=== PATIENT | male | born 1975 | race Two or more races ===

== ENCOUNTER → 2024-10-20 | Outpatient (CLI) | payer MEDICARE, MEDICAID, SELFPAY ==
--- NOTE | 2024-10-20 12:52 | XR_ITS ---
Examination: MRI brain without intravenous contrast. Date and time of exam: October 20, 2024 1309 hours Comparison April 13, 2015 INDICATIONS: Seizure activity beginning 5 months ago with memory loss Technique: Multiple axial and sagittal images of the brain obtained. Siemens high-resolution 1.5 Cherri short bore scanners utilized. Sagittal sections, T1-weighted, TR 500, TE 14, are performed. Axial sections proton-density and T2-weighted have been obtained. Inversion recovery axial images, TR 9, 260, TE 111, TI 2500. Diffusion weighted images, axial sections, TR 4800, TE 128, B value 1000 Axial sections, ADC map, TR 4800, TE 128 Findings: Enlargement of the sella turcica is not present. The optic chiasm and infundibular are not remarkable. Prepontine and interpeduncular cisterns are not enlarged. There is no localized enlargement of the medulla or annie. Fourth ventricle and cerebellar tonsils appear normal in position. No subacute area of hemorrhage density is seen. Mass in the cerebellopontine angle region is not evident. Globes symmetrical. Orbital musculature including medial lateral rectus muscles do not exhibit abnormality. Diffusion-weighted images demonstrate no focus of restricted diffusion. Increased white matter signal not seen Mass effect upon the ventricular system is not identified. Impression: Negative for acute hemorrhage mass effect or midline shift No acute infarct No MR findings diagnostic for demyelinating disease
== END | disposition home or self-care (01) ==
PROVIDERS: PCP Psychiatry & Neurology Neurology; Referring Provider Psychiatry & Neurology Neurology; Visit Provider Psychiatry & Neurology Neurology
DX: R41.3 Other amnesia (principal)
CPT/HCPCS: 70551

== ENCOUNTER 2024-12-24 20:03 | Emergency (ER) | payer MEDICARE, MEDICAID, SELFPAY ==
[2024-12-24] VITALS (9 sets, daily range): BP systolic 121–150; BP diastolic 69–98; PULSE 113–135; RESP 16–22; TEMP 37–38.6; O2SAT 91–100; BMI 24.4
--- NOTE | 2024-12-24 20:19 | EDNOTE_ITS ---
ED Seizures RME/HPI General Chief Complaint: Seizure Stated Complaint: SIEZURE Time Seen by Provider: 12/24/24 20:16 Arrival date/time: 12/24/24 20:03 RME / HPI RME / HPI Narrative: Dr. Krause?s Main ED Evaluation: 49yo male with a history of seizures QUYEN from home presents to the ED for a chief complaint of seizures. Family member at bedside states the patient had a total of 7 seizures today, which is unusual for him. Family member denies any cough, runny nose, fever, chills or any other associated symptoms. Family denies any recent sick contacts. No history of DM, HTN, or HLD. Full ROS is unobtainable due to the patient being postictal. Related Data Previous Rx's ?Medication ?Instructions ?Recorded Acetaminophen With Codeine 1 tab PO [id number] ##14 07/28 (Tylenol W-Codeine #3 Tablet) Allergies Allergy/AdvReac Type Severity Reaction Status Date / Time Bee Stings Allergy Severe Hives Uncoded 12/25/24 00:50 Review of Systems Review of Systems ROS Unobtainable: unobtainable due to medical condition (patient does not open his eyes or respond to commands) Past Medical History Past Medical History NEUROLOGIC: Positive Neurological Disorders (DEVELOPMENTALLY DELAYED) and Seiz ures CARDIAC: Negative Congestive Heart Failure RESPIRATORY: Negative Chronic Obstructive Pulmonary Disease (COPD) GENITOURINARY: Negative Renal Disease ENDOCRINE: Negative Diabetes Mellitus Type 1 or Diabetes Mellitus Type 2 Social History SMOKING STATUS: Never smoker ED Exam Narrative Physical exam: GENERAL APPEARANCE: Has muscle atrophy and muscle wasting, no acute distress. HEENT: NC, AT. MMM. EOMI, clear conjunctiva, oropharynx clear. NECK: Supple without lymphadenopathy. No stiffness or restricted ROM. HEART: Normal rate and regular rhythm, normal S1/S1, no m/r/g LUNGS: CTAB, spontaneous breathing. No crackles or wheezes are heard. ABDOMEN: Soft, nontender, nondistended with good bowel sounds heard. BACK: No midline C/T/L spine pain or deformity, No CVAT, no obvious deformity. EXTREMITIES: Without cyanosis, clubbing or edema. MUSCULOSKELETAL: FROM of all major joints, no chest tenderness NEUROLOGICAL: Postictal, does not respond to commands. Skin: Warm and dry without any rash. Course Course Course Narrative: CXR is ordered for determining the etiology of fever. 2024: Sepsis alert initiated. Orders made at this time are congruent with ED Adult Sepsis Order List. Re-evaluation is to be completed. 2142: NS IVF started. 7: Sepsis reassessment performed consisting of lab review, vitals, physical exam including auscultation of heart, lungs, and visual evaluation of capillary refills, mucosal membranes and extremities. 0101: As the patient was about to be discharged, patient became combative and uncooperative, and was placed back into room 4. 0338: Patient became agitated and is trying to fling himself off the bed. Valium 5mg IV ordered. Patient is stable to be discharged home whenever he wakes up. 0600: Care signed out to Dr. Levin (emergency physician). Past medical, surgical, social and family history reviewed. Vitals and home medications reviewed. Results and treatment plan discussed. They will assume the care of the patient at this time and will follow the patient, pending re-evaluation and final disposition Quality Measures Possible source: other (viral syndrome) Blood cultures ordered: yes Antibiotic ordered: Yes Pertinent labs: 12/24/24 12/24/24 20:08 23:19 Lactic Acid 6.8 H* mMol/L 1.8 mMol/L (0.4-2.0) (0.4-2.0) Procalcitonin 0.05 ng/ml (0.0-0.49) sepsis Orders Category Date Time Status EKG (ED ONLY) *Do not use* NOW Care 12/24/24 20:20 Completed In and Out Catheter X1 Care 12/24/24 20:20 Active EKG (ED Only) Stat Exams 12/24/24 20:20 Ordered XR chest 1V Stat Exams 12/24/24 20:20 Completed Blood Culture (Lab) Stat Lab 12/24/24 20:30 Received CBC Stat Lab 12/24/24 20:08 Completed CMP [Comprehensive Metabolic Panel] Stat Lab 12/24/24 20:08 Completed Lactate (Lactic Acid) Stat Lab 12/24/24 20:08 Completed Lactate (Lactic Acid) Stat Lab 12/24/24 23:19 Completed Partial Thromboplastin Time Stat Lab 12/24/24 20:08 Completed Procalcitonin Stat Lab 12/24/24 20:08 Completed Urinalysis Stat Lab 12/24/24 21:46 Completed Acetaminophen Supp [Tylenol Supp] Med 12/24/24 20:19 Discontinued 650 mg AZ X1 ONE Diazepam Inj [Valium Inj] Med 12/25/24 03:38 Discontinued 5 mg IVP X1 ONE Sodium Chloride 0.9% 1000 ml [Ns] 1,000 ml Med 12/24/24 21:34 Discontinued IV 999 mls/hr Sodium Chloride 0.9% 1000 ml [Ns] 1,000 ml Med 12/24/24 21:35 Discontinued IV 999 mls/hr levETIRAcetam INJ [Keppra Inj] Med 12/24/24 21:22 Discontinued 1,000 mg IVP X1 ONE Vital Signs Vital signs: Vital Signs Temperature 101.5 F H 12/24/24 20:16 Pulse Rate 124 H 12/24/24 20:16 Respiratory Rate 22 H 12/24/24 20:16 Blood Pressure 121/69 12/24/24 20:16 Pulse Oximetry (%) 91 L 12/24/24 20:16 Oxygen Delivery Method Room Air 12/24/24 20:16 Seizure MDM Narrative MDM Narrative:: Scribe Attestation: 12/24/24 - Loyda Darling am scribing for and in the presence of Dr. Krause. Patient data External records reviewed:: [facility] [place] (Per chart review, patient was seen here on 05/30/24 for altered awareness, transient.) Clinical information provided by:: spouse Social determinants that could affect healthcare access:: none Patient has the following chronic illnesses:: seizures How is presenting disease/condition affected by chronic disease/condition?: caused by Evaluation data The following diagnostics were reviewed and interpreted by me:: lab results, radiology exam(s) and EKG tracing(s) Lab and/or radiology exams considered but not ordered:: none Interpretation Summary: CBC is normal, Lactate is elevated at 6.8, Procalcitonin is normal, Sodium is 133, according to my interpretation. Repeat lactate improved to 1.8. [place] [facility] Report Signed Patient: PATTIE BAILEY [facility]. Record#: [id number] Birthdate: 1975 Age/Sex: 49 / M Location: [facility] Attending Dr: Ordering Physician: Roberto Krause MD Date of Service: 12/24/24 Procedure(s): XR chest 1V Accession Number(s): [id number] cc: Roberto Krasue MD; Jamie Holt MD~ Examination: AP chest single view FINDINGS: AP portable upright chest single view Standing time: December 24, 20242031 hours INDICATIONS: Sepsis alert, chest pain shortness of breath today. FINDINGS: Normal heart size No lumbar pneumonia. No pulmonary edema Moderate osteopenia IMPRESSION: No pneumonia or pulmonary edema Dictated By: Jamie Holt MD Signed By: <Electronically signed by Jamie Holt MD in OV> 12/24/242052 Medications / Prescriptions Medications or Prescriptions considered but not ordered:: none Medication administrations:: Medication Administration History Discontinued Medications Acetaminophen (Acetaminophen Supp 650 Mg Supp) 650 mg AZ X1 ONE Stop: 12/24/24 20:20 Last Admin: 12/24/24 20:32 Dose: 650 mg Documented By: JERONIMO Diazepam (Diazepam Inj 5 Mg/Ml Vial 2 Ml) 5 mg IVP X1 ONE Stop: 12/25/24 03:39 Last Admin: 12/25/24 03:54 Dose: 5 mg Documented By: JAVAD Sodium Chloride (Ns) 1,000 mls @ 999 mls/hr IV .Q1H1M ONE Stop: 12/24/24 22:34 Last Infusion: 12/24/24 23:07 Dose: Infused Documented By: Admin: 12/24/24 21:43 Dose: 999 mls/hr Documented By: JAVAD Sodium Chloride (Ns) 1,000 mls @ 999 mls/hr IV .Q1H1M ONE Stop: 12/24/24 22:35 Last Infusion: 12/24/24 23:07 Dose: Infused Documented By: Admin: 12/24/24 21:44 Dose: 999 mls/hr Documented By: JAVAD Levetiracetam (Levetiracetam Inj 100 Mg/Ml Vial 5ml) 1,000 mg IVP X1 ONE Stop: 12/24/24 21:23 Last Admin: 12/24/24 21:35 Dose: 1,000 mg Documented By: JAVAD see above Consultations Consultation(s) initiated? (list below): No Diagnosis Seizure Differential Diagnosis: generalized seizure, epileptic seizure and other (breakthrough seizure, viral syndrome, dehydration, electrolyte abnormality, pneumonia) Most likely diagnosis given after review of the tests above:: see clinical impression below Admission Indicated Admission indicated?: not indicated Explain why admission is indicated or not indicated:: Patient's temperature improved to 98.6 and lactate improved to 1.8. Patient is not septic and is stable to be discharged home. Admission Request Was there a request for admission?: No Disposition Plan Disposition Plan: other (specify) (Signed out to Dr. Levin at 0600 pending re- evaluation and final disposition.) Discharge Plan Prescriptions/Referrals Prescriptions/Med Rec: No Action Acetaminophen With Codeine (Tylenol W-Codeine #3 Tablet) 1 TAB tablet 1 tab PO [id number] Qty: 14 0RF Referrals: No Primary/Family,Physician [Primary Care Provider] - In 1 week Problem List Clinical Impression: Epileptic seizure Patient/Caregiver Discharge Instructions Education Materials: ED Seizure, Recurrent (Adult) Additional Instructions: Acuda a nina khadijah de seguimiento con boles neur?logo en yue o dos d?as para nina nueva evaluaci?n. Puede regresar a urgencias antes si los s?ntomas empeoran o si nota alg?n problema nuevo que le preocupe. Print Language: Colombian Stand Alone Forms: Marlene Award Info., Patient Portal Info Letter
[2024-12-24] MEDS: ACETAMINOPHEN SUPP 650 MG SUPP PR (20:32)
[2024-12-24 20:51] LABS: Basophils % (Auto) 0 % (0-2.5); Eosinophils % (Auto) 0 % (0-10); Hemoglobin 15.6 g/dL (13.5-16.0); Immature Granulocytes % (Auto) 0 % (0-0); Immature Granulocytes Auto 0.03 Thou/mm3 (0.00-0.00); Lymphocytes # (Auto) 0.7 Thou/mm3 (1.0-4.8); Lymphocytes % (Auto) 9 % (10-50); Mean Corpuscular HGB Conc 36.3 g/dl (31.0-37.0); Mean Corpuscular Hemoglobin 31.8 pg (25.0-35.0); Mean Corpuscular Volume 88 fL (80-100); Monocytes # (Auto) 0.7 Thou/mm3 (0.0-0.8); Monocytes % (Auto) 9 % (0-12); Neutrophils # (Auto) 6.5 Thou/mm3 (1.8-7.7); Neutrophils % (Auto) 82 % (37-80); Nucleated Red Blood Cell % 0 /100 WBC (0); Platelet Count 187 Thou/mm3 (140-440); RDW Standard Deviation 39.3 fL (35.1-43.9); White Blood Count 7.9 Thou/mm3 (3.8-10.6)
[2024-12-24 20:58] LABS: Lactate (Lactic Acid) 6.8 mMol/L (0.4-2.0)
[2024-12-24 21:09] LABS: Partial Thromboplastin Time 30.6 Seconds (22.0-36.0)
[2024-12-24 21:30] LABS: Alanine Aminotransferase 25 U/L (10-49); Albumin, Serum 4.7 gm/dL (3.5-5.0); Albumin/Globulin Ratio 1.9 (1.2-2.2); Alkaline Phosphatase 132 U/L (46-116); Anion Gap 13 (7-16); Aspartate Amino Transferase 28 U/L (0-34); BUN/Creatinine Ratio 14 Ratio (12-20); Bilirubin,Total 0.3 mg/dL (0.3-1.2); Blood Urea Nitrogen 13 mg/dL (9-23); Carbon Dioxide 21.5 mMol/L (20.0-31.0); Chloride 99 mMol/L (98-107); Creatinine (Component) 0.9 mg/dL (0.6-1.3); Globulin 2.5 gm/dL (2.3-3.5); Glucose 144 mg/dL (74-106); Osmolality,Calculated 269 (275-295); Potassium 3.9 mMol/L (3.4-5.1); Procalcitonin 0.05 ng/ml (0.0-0.49); Sodium 133 mMol/L (136-145); Total Protein 7.2 gm/dL (5.7-8.2); eGFR > 60 See Note
[2024-12-24] MEDS: levETIRAcetam INJ 100 MG/ML VIAL 5ML 1000 MG IVP (21:35)
[2024-12-24] MEDS: SODIUM CHLORIDE 0.9% 1000 ML 1,000 ML 999 ML IV ×2 (21:43→21:44)
[2024-12-24 22:33] LABS: Collection Type, Urine Catheter; RBC,Urine 0 /hpf (0-3); Squamous Epithelial Cell,Urine 0 /hpf (0-5); WBC,Urine 0 /hpf (0-5)
[2024-12-24 22:57] LABS: Bilirubin,Urine Negative (Negative); Blood,Urine Negative (Negative); Clarity,Urine Clear (Clear/Hazy); Color,Urine Lt-Yellow (Lt Yel-Yel); Glucose, Urine 4+ (Negative); Ketones,Urine Negative (Negative); Leukocyte Esterase,Urine Negative (Negative); Nitrite,Urine Negative (Negative); PH,Urine 6.5 (5.0-7.0); Protein,Urine Negative (Neg - Trace); Specific Gravity,Urine 1.024 (1.001-1.035); Urobilinogen,Urine Negative mg/dL (0.0-1.0)
[2024-12-24 23:24] LABS: Lactate (Lactic Acid) 1.8 mMol/L (0.4-2.0)
[2024-12-24 23:41] LABS: Reflex Lactate? Y
[2024-12-25] VITALS (10 sets, daily range): BP systolic 125–151; BP diastolic 76–101; PULSE 101–129; RESP 12–20; TEMP 37–37.7; O2SAT 92–98
--- NOTE | 2024-12-25 01:11 | PC.NURSE ---
PATIENT WAS BROUGHT BACK INTO ROOM 4. SISTER STATING POSSIBLE SEIZURE ACTIVITY. STATING THAT PATIENT CONFUSED STAFF FOR HIS FATHER AND BEGAN STATING STOP, STOP, STOP. PATIENT WAS ASSISTED BY STAFF BACK INTO ROOM 4.
[2024-12-25] MEDS: DIAZEPAM INJ 5 MG/ML VIAL 2 ML IVP (03:54)
--- NOTE | 2024-12-25 06:45 | EDNOTE_ITS ---
Emergency Room Addendum Addendum Narrative: 0600: Care assumed from Dr. Krause, the previous shift emergency physician. Past medical, surgical, social and family history reviewed. Vitals and home medications reviewed. I will assume the care of the patient at this time, pending reevaluation and final disposition. Please refer to the emergency department record for history and examination from initial visit.?The following addendum documentation note is intended to reflect any pending information, findings, or radiology results not included in the patient?s initial chart. EMS notes reviewed by me. Nursing notes reviewed by me. Vital signs reviewed by me. [place] medical records reviewed by me. 0715: On reassessment, patient is resting comfortably. We discussed plan for patient to follow up with their neurologist Dr. Dominguez this morning. Office opens at 07:30 AM. Family at bedside states she is in agreement with plan.
== END 2024-12-25 07:51 | disposition home or self-care (01) ==
PROVIDERS: Emergency Provider Emergency Medicine
DX: G40.909 Epilepsy, unspecified, not intractable, without status epilepticus (principal); R07.9 Chest pain, unspecified; R06.02 Shortness of breath; R00.0 Tachycardia, unspecified
CPT/HCPCS: 36415; 71045; 80053; 81001; 83605; 84145; 85025; 85730; 87040; 93005; 96360; 96361; 96374; 99284; J1953; J3360; J7030; A9270